=== PATIENT | male | born 1965 | race Caucasian/White ===

== ENCOUNTER 2024-06-30 14:17 | Outpatient (CLI) | payer OTHER | END 2024-06-30 14:18 | disposition home or self-care (01) | LOC: BURRAD 14:17 | PROVIDERS: ATTEND Chiropractor | DX: M54.50 Low back pain, unspecified (principal); M47.817 Spondylosis without myelopathy or radiculopathy, lumbosacral region | CPT/HCPCS: 72110 ==

== ENCOUNTER 2025-03-08 14:51 | Outpatient (CLI) | payer OTHER | END 2025-03-08 14:52 | disposition home or self-care (01) | LOC: BURRAD 14:51 | PROVIDERS: ATTEND Orthopaedic Surgery | DX: M54.50 Low back pain, unspecified (principal); M47.816 Spondylosis without myelopathy or radiculopathy, lumbar region; Z98.1 Arthrodesis status | CPT/HCPCS: 72100 ==

== ENCOUNTER 2025-05-06 13:31 | Outpatient (CLI) | payer OTHER | END 2025-05-06 13:32 | disposition home or self-care (01) | LOC: BURRAD 13:31 | PROVIDERS: ATTEND Orthopaedic Surgery | DX: M54.50 Low back pain, unspecified (principal); M47.816 Spondylosis without myelopathy or radiculopathy, lumbar region; Z98.890 Other specified postprocedural states | CPT/HCPCS: 72100 ==